=== PATIENT | male | born 1965 | race Caucasian/White ===

== ENCOUNTER 2016-09-17 07:43 | Outpatient (CLI) | payer MEDICARE, OTHER ==
[2016-09-17 08:47] LABS: #Basophils 0.1 thou/uL (0.0-0.2); #Eosinphils 0.3 thou/uL (0.0-0.7); #Lymphocytes 1.5 thou/uL (1.20-3.40); #Monocytes 0.4 thou/uL (0.11-0.59); #Neutrophils 1.7 thou/uL (1.40-6.50); %Basophils 1.5 % (0.0-1.0); %Eosinophils 6.8 % (0.0-10.0); %Lymphocytes 38.4 % (21.0-51.0); %Monocytes 9.4 % (0.0-10.0); Hematocrit 43.6 % (42.0-52.0); Mean Platelet Volume 8.4 fL (7.4-10.4); Red Blood Cell (RBC) Count 4.64 mill/uL (4.70-6.10); White Blood Cell (WBC) Count 3.9 thou/uL (4.8-10.8)
[2016-09-17 08:57] LABS: ALT (SGPT) 12 U/L (0-55); AST (SGOT) 14 U/L (5-34); Alkaline Phosphatase 76 U/L (40-150); Anion Gap 13 mmol/L (10-20); BUN (Urea Nitrogen) 14 mg/dL (8.4-25.7); Bilirubin, Total 0.5 mg/dL (0.2-1.2); Calc. Creatinine Clearance 0 mL/min (70-130); Calcium 9.1 mg/dL (7.8-10.44); Carbon Dioxide 26 mmol/L (22-29); Chloride 108 mmol/L (98-107); Estimated GFR-MDRD Greater than 90; Globulin 2.5 g/dL (2.4-3.5); LDL Cholesterol, Calculated 86 mg/dL; Protein, Total 6.7 g/dL (6.0-8.3)
== END 2016-09-17 07:44 ==
LOC: NAVSJIPCSP 07:43
PROVIDERS: ATTEND Internal Medicine
DX: G35 Multiple sclerosis (principal); I10 Essential (primary) hypertension
CPT/HCPCS: 80053; 80061; 84443; 85025